=== PATIENT | male | born 1990 | race Hispanic/Latino ===

== ENCOUNTER 2025-03-16 06:34 | Inpatient (IN) | payer OTHER ==
[2025-03-16] VITALS (7 sets, daily range): BP systolic 121–157; BP diastolic 61–96; PULSE 56–98; RESP 16–18; TEMP 97.9–98.3; O2SAT 95–100
[~2025-03-16] VITALS: Ht 175.3 cm; Wt 117.9 kg
[2025-03-16 07:26] LABS: BASOPHILS % 0.4 % (0.0-1.0); EOSINOPHILS # (AUTO) 0.2 (0.0-0.4); EOSINOPHILS % 3.4 % (0.0-6.0); HEMATOCRIT 44.3 % (38.2-49.6); HEMOGLOBIN 15.4 g/dL (14.0-18.0); LYMPHOCYTES # (AUTO) 2.3 (1.0-3.2); MEAN CORPUSCULAR HEMOGLOBIN 30.9 pg (28-32); MEAN CORPUSCULAR HGB CONC 34.8 g/dL (31-35); MEAN CORPUSCULAR VOLUME 88.8 fL (81-99); MONOCYTES # (AUTO) 0.6 (0.2-0.8); MONOCYTES % 8.4 % (4.4-11.3); NEUTROPHILS # (AUTO) 3.8 (2.1-6.9); NEUTROPHILS % 54.5 % (38.7-80.0); PLATELET COUNT 235 x10e3/uL (140-360); RED BLOOD COUNT 4.99 x10e6/uL (4.3-5.7); WHITE BLOOD COUNT 6.99 x10e3/uL (4.8-10.8)
[2025-03-16] MEDS ORDERED: IOPAMIDOL 370 MG/ML 100 ML INFUS..BTL INJ ONE (07:49)
[2025-03-16] MEDS: Morphine 4mg INJECTION 4 MG/ML INJ IV STA ×2 (07:51→09:42)
[2025-03-16] MEDS: ONDANSETRON HCL INJ 2MG/ML 2ML 2 MG/ML VIAL IV STA ×2 (07:51→18:12)
[2025-03-16] MEDS: SODIUM CHLORIDE 0.9% 1000ML 1,000 ML IV STA (07:51)
[2025-03-16 07:54] LABS: INR 0.86; PROTHROMBIN TIME 12.3 seconds (11.9-14.5)
[2025-03-16 07:55] LABS: PARTIAL THROMBOPLASTIN TIME 27.6 seconds (23.8-35.5)
[2025-03-16 07:57] LABS: ALBUMIN 4.3 g/dL (3.5-5.0); ALBUMIN/GLOBULIN RATIO 1.2 (0.8-2.0); ANION GAP 14.3 mmol/L (8-16); BILIRUBIN,TOTAL 0.9 mg/dL (0.2-1.2); CALCIUM 9.6 mg/dL (8.4-10.2); CREATININE, SERUM 0.98 mg/dL (0.72-1.25); POTASSIUM 4.3 mmol/L (3.5-5.1); TOTAL PROTEIN 7.9 g/dL (6.5-8.1)
[2025-03-16] MEDS ORDERED: Morphine 4mg INJECTION 4 MG/ML INJ IV PRN (09:30)
[2025-03-16] MEDS ORDERED: ONDANSETRON HCL INJ 2MG/ML 2ML 2 MG/ML VIAL IV PRN ×2 (09:30→14:30)
[2025-03-16] MEDS: SODIUM CHLORIDE 0.9% 1000ML 1,000 ML IV SCH ×2 (09:45→15:49)
[2025-03-16] MEDS ORDERED: VENLAFAXINE HCL75 M1 PO (10:39)
[2025-03-16] MEDS ORDERED: FLUTICASONE PRO16 GM NS (10:39)
[2025-03-16] MEDS ORDERED: FENTANYL CITRATE/PF 100MCG/2 ML INJ ONE (12:45)
[2025-03-16] MEDS ORDERED: ROCURONIUM BROMIDE 1 ML IV ONE (12:45)
[2025-03-16] MEDS ORDERED: ACETAMINOPHEN 1000 MG/100 ML 100 ML IV ONE (12:46)
[2025-03-16] MEDS ORDERED: SUCCINYLCHOLINE CHLORIDE 20 MG/ML 10ML VIAL ONE (12:46)
[2025-03-16] MEDS ORDERED: SEVOFLURANE INHAL SOLN 250 ML PEN BTL ONE (12:46)
[2025-03-16] MEDS ORDERED: SUGAMMADEX SODIUM 200 MG/2 ML VIAL IV ONE (12:46)
[2025-03-16] MEDS ORDERED: PROPOFOL IV EMULSION 10 MG/ML 20 ML VIAL ONE (12:46)
[2025-03-16] MEDS ORDERED: SOLIFENACIN SUCCINATE 5 MG TAB PO SCH (14:00)
[2025-03-16] MEDS ORDERED: KETOROLAC TROMETHAMINE 30 MG/ML VIAL ONE (14:18)
[2025-03-16] MEDS ORDERED: HYDROCODONE/APAP 5MG-325MG TAB PO PRN (14:30)
[2025-03-16] MEDS ORDERED: ACETAMINOPHEN 325 MG TAB PO PRN (17:30)
[2025-03-16] MEDS ORDERED: POLYETHYLENE GLYCOL 3350 17 GM PACK PO PRN (17:30)
[2025-03-16] MEDS ORDERED: HYDRALAZINE HCL 20 MG/ML VIAL IV PRN (17:30)
[2025-03-17] VITALS (7 sets, daily range): BP systolic 116–153; BP diastolic 74–82; PULSE 66–94; RESP 17–20; TEMP 97.6–98.4; O2SAT 95–100
[2025-03-17 07:42] LABS: BASOPHILS % 0.1 % (0.0-1.0); EOSINOPHILS # (AUTO) 0.1 (0.0-0.4); EOSINOPHILS % 0.7 % (0.0-6.0); HEMATOCRIT 41.6 % (38.2-49.6); HEMOGLOBIN 14.2 g/dL (14.0-18.0); LYMPHOCYTES # (AUTO) 1.9 (1.0-3.2); LYMPHOCYTES % 14.1 % (18.0-39.1); MEAN CORPUSCULAR HEMOGLOBIN 30.9 pg (28-32); MEAN CORPUSCULAR HGB CONC 34.1 g/dL (31-35); MEAN CORPUSCULAR VOLUME 90.4 fL (81-99); MONOCYTES # (AUTO) 1.1 (0.2-0.8); MONOCYTES % 7.8 % (4.4-11.3); NEUTROPHILS # (AUTO) 10.4 (2.1-6.9); NEUTROPHILS % 76.9 % (38.7-80.0); PLATELET COUNT 232 x10e3/uL (140-360); RED CELL DISTRIBUTION WIDTH 12.2 % (11.7-14.4); WHITE BLOOD COUNT 13.52 x10e3/uL (4.8-10.8)
[2025-03-17 08:25] LABS: PHOSPHORUS 3.6 MG/DL (2.3-4.7)
[2025-03-17 08:28] LABS: ALBUMIN 3.9 g/dL (3.5-5.0); ALBUMIN/GLOBULIN RATIO 1.2 (0.8-2.0); ANION GAP 15.2 mmol/L (8-16); BILIRUBIN,TOTAL 1.7 mg/dL (0.2-1.2); CALCIUM 9.1 mg/dL (8.4-10.2); CREATININE, SERUM 0.98 mg/dL (0.72-1.25); POTASSIUM 4.2 mmol/L (3.5-5.1); TOTAL PROTEIN 7.2 g/dL (6.5-8.1)
[2025-03-17] MEDS ORDERED: ULTRAM 50MG50 MG PO (08:41)
[2025-03-17 08:50] LABS: FREE T4 (FREE THYROXINE) 1.17 ng/dL (0.8-1.8); THYROID STIMULATING HORMONE 0.4 uIU/mL (0.350-4.940)
[2025-03-17] MEDS: DOCUSATE SODIUM 100 MG CAP PO SCH (09:09)
[2025-03-17] MEDS ORDERED: MIRALAX17 GM PO (11:24)
[2025-03-17] MEDS ORDERED: ACETAMINOPHEN325 M1 PO (11:24)
[2025-03-17] MEDS ORDERED: COLACE100 M1 PO (11:24)
== END 2025-03-17 13:40 | disposition home or self-care (01) | DRG 419 ==
LOC: ER 06:38 → ERHOLD 09:28 → MED/SURG3 10:13
PROVIDERS: ADMIT Internal Medicine; ATTEND Internal Medicine
PROC: 0FT44ZZ Resection of Gallbladder, Percutaneous Endoscopic Approach (ICD-10-PCS; principal; 2025-03-16 13:29)
DX: K80.00 Calculus of gallbladder with acute cholecystitis without obstruction (principal); K76.0 Fatty (change of) liver, not elsewhere classified; E66.9 Obesity, unspecified; Z68.38 Body mass index [BMI] 38.0-38.9, adult; R19.7 Diarrhea, unspecified; F41.9 Anxiety disorder, unspecified; L30.9 Dermatitis, unspecified; J30.2 Other seasonal allergic rhinitis; Z88.0 Allergy status to penicillin; Z91.010 Allergy to peanuts; Z91.018 Allergy to other foods
CPT/HCPCS: 36415; 74177; 76705; 80053; 80061; 82948; 83036; 83690; 83735; 84100; 84439; 84443; 85025; 85610; 85730; 88304; 94799; 99284; J0330; J1885; J2270; J2405; J2470; J2543; J7030; Q9967